=== PATIENT | female | born 1970 | race African-American/Black ===

== ENCOUNTER 2024-05-20 13:59 | Emergency (ER) | payer BC, OTHER ==
[2024-05-20] MEDS ORDERED: Diazepam 5 MG TAB ONE (16:43)
== END 2024-05-20 17:56 | disposition home or self-care (01) ==
LOC: ERS 13:59
DX: F41.9 Anxiety disorder, unspecified (principal); Z55.0 Illiteracy and low-level literacy; Z59.00 Homelessness unspecified; Z59.7 Insufficient social insurance and welfare support
CPT/HCPCS: 99283